=== PATIENT | female | born 1995 | race Caucasian/White ===

== ENCOUNTER 2019-11-27 06:05 | Emergency (ER) | payer OTHER, SELFPAY ==
[2019-11-27 06:06] VITALS: BP 134/91; PULSE 90; RESP 16; TEMP 36.7; O2SAT 97; BMI 35.7
--- NOTE | 2019-11-27 06:21 | ED.DCSUM_ITS ---
- ER Visit Summary Date of Service: 11/27/19 Chief Complaint: Back pain History of Present Illness: The patient is a 24 F [facility] She does not have a primary care physician. She reports at 9:00 last night she was picking up a futon mattress and had the abrupt onset of low back pain. She describes it as a sharp, throbbing pain that is 10 out of 10 with movement 6 out of 10 at rest. She is not taking anything for pain. There is no ration to her legs. No numbness or weakness in her legs. No problems with her bowels or bladder. No groin numbness. She denies any other trauma. No fall or MVA. She reports has had similar symptoms previously with spinal stenosis. Patient is a G1, P0 at 14 weeks of . She denies any vaginal bleeding. She denies any dysuria or frequency. She has no red flags. Physical Examination: Vitals: Stable. Afebrile. General: A&O x 3. NAD. Cardiovascular exam: Regular rate and rhythm, no murmur, rub or gallop. Respiratory exam: Clear to auscultation bilaterally. No wheezes or stridor. Abdominal exam: Soft, nontender, nondistended, normal bowel sounds. No peritoneal signs. Gravid uterus. Back: Diffuse moderate tenderness to palpation over the lumbar spine and the paraspinous musculature in the lumbar region. No point tenderness. Negative straight leg bilaterally. 5/5 DF, PF, EHL bilaterally. Normal sensation to light touch throughout. Extremity: No clubbing, cyanosis, or edema. Test Results: heart tones are 140. Emergency Department Course and Treatment: Patient was treated with Tylenol. She is resting comfortably. Treatment Plan: Patient will be discharged with symptomatic care. Instructed use Tylenol for pain. [facility] week if not improving. Return to the emergency department for any worsening symptoms. Disposition: To home in improved and stable condition. Impression: 1 1. Low back pain. 2. Second trimester . This note was generated with Transmensionation software. It may contain incorrect words, spelling, and punctuation that were not noted in review of the chart prior to signing ED Disposition - Plan for ED Patient: Disposition: Home or Assisted Living Instructions: ED LUMBAR SPRAIN/STRAIN Referrals: Lucie Silva MD [Primary Care Provider] - 1 Week if not improving
[2019-11-27] MEDS: Acetaminophen 500 MG Tablet 1000 MG PO (06:28)
[2019-11-27 06:51] VITALS: BP 134/91; PULSE 90; RESP 16; O2SAT 97
== END 2019-11-27 07:03 | disposition home or self-care (01) ==
LOC: ED 07:02
PROVIDERS: Emergency Provider Emergency Medicine; PCP Internal Medicine
DX: M54.5 Low back pain (principal); Z3A.14 14 weeks gestation of pregnancy
CPT/HCPCS: 99283

== ENCOUNTER 2020-05-29 07:15 | Inpatient (IN) | payer MEDICAID, SELFPAY ==
[2020-05-29] VITALS (41 sets, daily range): BP systolic 124–185; BP diastolic 58–91; PULSE 63–95; RESP 18; TEMP 35.8–37.3; O2SAT 82–100; BMI 38.9
--- NOTE | 2020-05-29 07:17 | PCM.HP.OB ---
History Date of Admission: 05/29/20 Final MANOJ: 05/29/20 Gestational age: 40 Weeks and 0 Days History of this : This is a 24 year-old, G [], P [], at weeks gestational age. 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 Number of Fetus(es): 1 NST - FHR Rate Baby A Baseline: 140 Variability:: Moderate Accelerations:: 15 x 15 Decelerations:: Variable Uterine Activity:: Irregular History Past Pregnancies: Past Pregnancies Delivery Date Name GA/ Weeks Outcome Route Wt Sex Labor Length Anesthesia Delivery Location Provider FOB Labs: See [facility] H&P Physical Exam Vitals: Vital Signs Temp Pulse BP 98.5 F 66 138/80 H 05/29/20 05:10 05/29/20 05:10 05/29/20 05:10 General: Alert, Oriented x3 Abdomen: Soft, Non Tender, Non-Distended, Gravid Neurological: Cranial nerves II-XII grossly intact POLYSOMNOGRAPH TECH: Normal external genitalia Estimated gestational size: Appropriate for gestational size Presentation: Cephalic Cervix Dilation (cm): 3 Station: -2 Effacement (%): 80 Assessment/Plan This is a 24 year-old, G1, P0, at 40 weeks gestational age. Admit to L&D Expectant management Pain - epidural GBS negative EFW - less than 4500g, patient with adequate pelvis H/o marijuana (used in ) & meth (last use more than 1 year ago) - check utox, plan for PP social work consult
[2020-05-29] MEDS: Lactated Ringers 500 ML 999 ML IV (07:40)
[2020-05-29] MEDS: Lactated Ringers 1,000 ML 50 ML IV (07:40)
[2020-05-29] MEDS: Ondansetron 4 MG/2 ML Vial IV (07:45)
[2020-05-29 07:58] LABS: Absolute Lymphocyte Count 1.45 X10^3/uL (0.83-4.51); Absolute Neutrophil Count 22.6 X10^3/uL (2.0-7.7); Basophil# 0.05 X10^3/uL; Basophil% 0.2 % (0-1); Eosinophil# 0.01 X10^3/uL; Hematocrit 39.6 % (37-47); Hemoglobin 13.3 g/dL (12.0-15.0); Lymphocyte # 1.45 X10^3/ul (4.0); Lymphocyte % 5.8 % (19-41); Mean Corp Hgb Conc 33.6 g/dL (32-36); Mean Corpuscular Hgb 31.1 pg (27.0-32.0); Mean Corpuscular Volume 92.7 fL (81-99); Mean Platelet Vol. 12.9 fl (6.2-12.0); Monocyte# 0.47 X10^3/uL; Monocyte% 1.9 % (0-10); NRBC Flagged by Analyzer 0 % (0-5); Neutrophil # 22.62 X10^3/uL (2.7-7.7); Neutrophil % 91.3 % (47-70); POSITIVE DIFFERENTIAL YES; Platelet Count 243 K/mm3 (150-450); RBC Distribution Width CV 12.5 % (11.6-14.6); RBC Distribution Width SD 42.5 fl (35.1-43.9); Red Blood Count 4.27 M/mm3 (4.2-5.4); White Blood Count 24.8 K/mm3 (4.4-11.0)
[2020-05-29 07:59] LABS: Differential Indicated SCAN CRITERIA MET
[2020-05-29 08:12] LABS: AST(SGOT) 22 U/L (15-37); Alanine Aminotransfer ALT/SGPT 18 U/L (13-56); Creatinine, Serum 0.67 mg/dL (0.55-1.02); EST Glomerular Filtration Rate 114 mL/min (>60); Est Glom Filt Rate - Afr Amer 138 mL/min (>60); Estimated Creatinine Clearance 121.21 ml/min; Uric Acid 5.1 mg/dL (2.6-6.0)
[2020-05-29] MEDS: fentaNYL-bupivacaine (epidural) 100 ML BAG EPIDURAL ×3 (08:34→17:46)
[2020-05-29 08:52] LABS: Partial Thromboplast Time 27.3 Seconds (24.1-36.2); Prothrombin Time (Protime)PT. 12.2 SECONDS (11.7-14.9)
--- NOTE | 2020-05-29 10:15 | PCM.PN.OB ---
Subjective: Breathing through contraction. Denies headache, visual changes, or RUQ pain. Requesting epidural for pain. Objective: FHR 140, moderate variability, accels. Had one late deceleration with positioning and recovered. Category 2 FHT TOCO: every 3-5 minutes, strong Cervix 3.5/90/-2 AROM small amount of clear fluid - Physical Exam Vitals/I&O's: Vital Signs Temp Pulse BP Pulse Ox 97.4 F L 68 142/68 H 98 05/29/20 12:05/29/20 12:09 05/29/20 12:05/29/20 12:09 Weight: 241 lb 6 oz Body Mass Index (BMI) 38.9 Intake and Output for Last 24 Hours 05/27/20 05/28/20 05/29/20 23:59 23:59 23:59 Intake Total 525.83 / 525.83 Output Total 150 / 150 Balance 375.83 / 375.83 Laboratory Results 05/29/20 07:40: WBC 24.8 H, RBC 4.27, Hgb 13.3, Hct 39.6, MCV 92.7, MCH 31.1, MCHC 33.6, RDW Std Deviation 42.5, RDW Coeff of Mar 12.5, Plt Count 243, MPV 12.9 H, Immature Gran % (Auto) 0.800, Neut % (Auto) 91.3 H, Lymph % (Auto) 5.8 L, [place] % (Auto) 1.9, Eos % (Auto) 0.0, Baso % (Auto) 0.2, Absolute Neuts (auto) 22.6 H, Absolute Lymphs (auto) 1.45, Nucleated RBC % 0, Differential Comment COMMENT 05/29/20 07:40: Blood Type O NEGATIVE, Antibody Screen NEGATIVE 05/29/20 07:40: PT 12.2, INR 1.0, APTT 27.3 05/29/20 07:40: Creatinine 0.67, Estim Creat Clear Calc 121.21, Est GFR (MDRD) Af Amer 138, Est GFR (MDRD) Non-Af 114, Uric Acid 5.1, AST 22, ALT 18 05/29/20 10:00: Urine Opiates Screen NEGATIVE, Urine Methadone Screen NEGATIVE, Ur Barbiturates Screen NEGATIVE, Ur Phencyclidine Scrn NEGATIVE, Ur Amphetamines Screen NEGATIVE, U Methamphetamin-MDMA NEGATIVE, U Benzodiazepines Scrn NEGATIVE, Urine Cocaine Screen NEGATIVE, U Cannabinoids Screen POSITIVE H, Ur Drug Screen Comment 05/29/20 10:00: U Random Total Protein 47.8 H, Urine Creatinine 243.00, Protein/Creatinin Ratio 197 Current Medications Acetaminophen (Tylenol) 325 - 650 mg PO Q4H PRN PRN PRN Reason: Pain Score 1-3/10 Al Hydroxide/Mg Hydroxide (Mylanta Ii) 15 - 30 ml PO Q4H PRN PRN PRN Reason: INDIGESTION Citric Acid/Sodium Citrate (Bicitra) 30 ml PO X1 PRN PRN Reason: Section Ephedrine Sulfate () 10 mg IV Q10M PRN PRN Reason: hypotension Ephedrine Sulfate () 10 mg IM Q30M PRN PRN Reason: hypotension Fentanyl Citrate (Sublimaze (100mcg Ampule)) 25 - 50 mcg IV Q2H PRN PRN PRN Reason: Pain Score 4-10/10 Fentanyl/Bupivacaine/Sodium Chlor () 0 ml EPIDURAL UD [facility]; Protocol Last Admin: 05/29/20 08:34 Dose: 100 ml Documented by: Lactated Ringer's () 500 mls @ 999 mls/hr IV .Q31M PRN PRN Reason: Epidural Last Infusion: 05/29/20 08:11 Dose: Infused Documented by: Lactated Ringer's () 500 mls @ 999 mls/hr IV .Q31M PRN PRN Reason: Corrective Measures Lactated Ringer's () 1,000 mls @ 50 mls/hr IV .Q20H [facility] Last Infusion: 05/29/20 08:11 Dose: 200 mls/hr Documented by: Naloxone HCl 4 mg/ Dextrose 504 mls @ 0 mls/hr IV .Q0M PRN; Protocol PRN Reason: To maintain Resp. rate >10 Oxytocin/Sodium Chloride () 30 units in 500 mls @ 2 mls/hr IV .Q250H [facility] Nalbuphine HCl (Nubain) 5 mg IV Q3H PRN PRN PRN Reason: ITCHING Naloxone HCl (Narcan) 0.02 mg IV Q1M PRN PRN Reason: RR< 10 AND PT UNRESPONSIVE Ondansetron HCl (Zofran) 4 mg IV Q4H PRN PRN PRN Reason: NAUSEA Last Admin: 05/29/20 07:45 Dose: 4 mg Documented by: Prochlorperazine Edisylate (Compazine Iv) 10 mg IV Q6H PRN PRN PRN Reason: NAUSEA Sodium Chloride () 10 - 40 ml IV X1 PRN PRN Reason: SALINE FLUSH Medical Necessity - Tobacco Use Smoking Status: Current every day smoker Assessment/Plan A:Active labor Category 2 FHT P: 1) AROM 2) Continuous EFM 3) Preeclampsia labs normal, BP stable. Awaiting urine P/C ratio. No signs of preeclampsia at this time 4) Comfortable with epidural. 5) updated on patient status 6) urine tox screen positive for marijuana, sr. social media & mobile manager consult PP
[2020-05-29 10:55] LABS: Protein, Urine (Random) 47.8 mg/dL (<11.9); Protein:Creat Ratio 197 mg/g CRE (0-200)
[2020-05-29 11:08] LABS: Amphetamine Urine VISTA NEGATIVE (<1000 ng/mL); Barbiturate Urine VISTA NEGATIVE (< 200 ng/mL); Benzodiazepine Urine VISTA NEGATIVE (< 200 ng/mL); Cocaine Urine VISTA NEGATIVE (< 300 ng/mL); Ecstacy Urine VISTA NEGATIVE (< 500 ng/mL); Methadone Urine VISTA NEGATIVE (< 300 ng/mL); PCP Urine VISTA NEGATIVE (< 25 ng/mL); THC Urine VISTA POSITIVE (< 50 ng/mL); Vista UDS pH Range 7
--- NOTE | 2020-05-29 12:10 | PN.OBGYN_ITS ---
Subjective: Resting on right side in bed, comfortable with epidural. Partner at bedside. Objective: BP stable Urine P/C ratio 197 normal FHR 120, moderate variability, accels Category 1 FHT TOCO: Irregular >5 minutes apart Cervix 4/90/-1 ANJANA - Physical Exam Vitals/I&O's: Vital Signs Temp Pulse BP Pulse Ox 97.4 F L 68 142/68 H 98 05/29/20 12:09 05/29/20 12:09 05/29/20 12:09 05/29/20 12:09 Weight: 241 lb 6 oz Body Mass Index (BMI) 38.9 Intake and Output for Last 24 Hours 05/27/20 05/28/20 05/29/20 23:59 23:59 23:59 Intake Total 1442.50 / 1442.50 Output Total 150 / 150 Balance 1292.50 / 1292.50 Laboratory Results 05/29/20 07:40: WBC 24.8 H, RBC 4.27, Hgb 13.3, Hct 39.6, MCV 92.7, MCH 31.1, MCHC 33.6, RDW Std Deviation 42.5, RDW Coeff of Mar 12.5, Plt Count 243, MPV 12.9 H, Immature Gran % (Auto) 0.800, Neut % (Auto) 91.3 H, Lymph % (Auto) 5.8 L , [place] % (Auto) 1.9, Eos % (Auto) 0.0, Baso % (Auto) 0.2, Absolute Neuts (auto) 22.6 H, Absolute Lymphs (auto) 1.45, Nucleated RBC % 0, Differential Comment COMMENT 05/29/20 07:40: Blood Type O NEGATIVE, Antibody Screen NEGATIVE 05/29/20 07:40: PT 12.2, INR 1.0, APTT 27.3 05/29/20 07:40: Creatinine 0.67, Estim Creat Clear Calc 121.21, Est GFR (MDRD) Af Amer 138, Est GFR (MDRD) Non-Af 114, Uric Acid 5.1, AST 22, ALT 18 05/29/20 10:00: Urine Opiates Screen NEGATIVE, Urine Methadone Screen NEGATIVE, Ur Barbiturates Screen NEGATIVE, Ur Phencyclidine Scrn NEGATIVE, Ur Amphetamines Screen NEGATIVE, U Methamphetamin-MDMA NEGATIVE, U Benzodiazepines Scrn NEGATIVE, Urine Cocaine Screen NEGATIVE, U Cannabinoids Screen POSITIVE H, Ur Drug Screen Comment 05/29/20 10:00: U Random Total Protein 47.8 H, Urine Creatinine 243.00, Protein/Creatinin Ratio 197 Current Medications Acetaminophen (Tylenol) 325 - 650 mg PO Q4H PRN PRN PRN Reason: Pain Score 1-3/10 Al Hydroxide/Mg Hydroxide (Mylanta Ii) 15 - 30 ml PO Q4H PRN PRN PRN Reason: INDIGESTION Citric Acid/Sodium Citrate (Bicitra) 30 ml PO X1 PRN PRN Reason: Section Ephedrine Sulfate () 10 mg IV Q10M PRN PRN Reason: hypotension Ephedrine Sulfate () 10 mg IM Q30M PRN PRN Reason: hypotension Fentanyl Citrate (Sublimaze (100mcg Ampule)) 25 - 50 mcg IV Q2H PRN PRN PRN Reason: Pain Score 4-10/10 Fentanyl/Bupivacaine/Sodium Chlor () 0 ml EPIDURAL UD [facility]; Protocol Last Admin: 05/29/20 12:46 Dose: 100 ml Documented by: Lactated Ringer's () 500 mls @ 999 mls/hr IV .Q31M PRN PRN Reason: Epidural Last Infusion: 05/29/20 08:11 Dose: Infused Documented by: Lactated Ringer's () 500 mls @ 999 mls/hr IV .Q31M PRN PRN Reason: Corrective Measures Lactated Ringer's () 1,000 mls @ 50 mls/hr IV .Q20H [facility] Last Admin: 05/29/20 12:46 Dose: 200 mls/hr Documented by: Naloxone HCl 4 mg/ Dextrose 504 mls @ 0 mls/hr IV .Q0M PRN; Protocol PRN Reason: To maintain Resp. rate >10 Oxytocin/Sodium Chloride () 30 units in 500 mls @ 2 mls/hr IV .Q250H [facility] Last Admin: 05/29/20 12:48 Dose: 2 mls/hr Documented by: Nalbuphine HCl (Nubain) 5 mg IV Q3H PRN PRN PRN Reason: ITCHING Naloxone HCl (Narcan) 0.02 mg IV Q1M PRN PRN Reason: RR< 10 AND PT UNRESPONSIVE Ondansetron HCl (Zofran) 4 mg IV Q4H PRN PRN PRN Reason: NAUSEA Last Admin: 05/29/20 07:45 Dose: 4 mg Documented by: Prochlorperazine Edisylate (Compazine Iv) 10 mg IV Q6H PRN PRN PRN Reason: NAUSEA Sodium Chloride () 10 - 40 ml IV X1 PRN PRN Reason: SALINE FLUSH Medical Necessity - Tobacco Use Smoking Status: Current every day smoker Assessment/Plan A:Active Labor Category 1 FHT P: 1) Contractions spaced out, if not increased in next 20 minutes will start pitocin augmentation. 2) Epidural effective 3) BP stable and preeclampsia labs normal. 4) update on patient status.
[2020-05-29] MEDS: Lactated Ringers 1,000 ML 200 ML IV ×2 (12:46→17:46)
[2020-05-29] MEDS: Oxytocin 30 units/NS 500 ml 30 UNITS/500 ML IV.SOLN IV (12:48)
[2020-05-29] MEDS: Oxytocin 30 units/NS 500 ml 30 UNITS/500 ML IV.SOLN 334 UNITS IV (18:32)
--- NOTE | 2020-05-29 19:10 | PCM.OPRPT ---
Problem List (1) Vaginal delivery Status: Acute (2) First degree perineal laceration Status: Acute (3) Periurethral laceration, delivered, current hospitalization Status: Acute Vaginal Delivery Maternal Presentation: Active Labor Amniotic Membrane Rupture Type: Artificial Amniotic Fluid Description: Clear - Clear fluid with rupture of membranes then Meconium near delivery Final MANOJ: 05/29/20 Gestational age: 40 Weeks and 0 Days Date of Procedure: 05/29/20 Pre-Operative Diagnosis: Active Labor Post-Operative Diagnosis: Surgery/ Procedure Performed: Spontaneous Vaginal Delivery Type of Anesthesia: Epidural Description of Procedure: Progressed to complete with urge to push. of viable male infant over first degree perineal laceration and periurethral laceration at 1830. APGARS 9, 9. head delivered with body forthcoming. Infant placed on maternal abdomen, spontaneous cry, mouth and nares suctioned for secretions. Pitocin started for active 3rd stage management. Placenta delivered with expression intact, 3 vessel cord, via pa. Perineum inspected and revealed first degree perineal laceration and periurethral laceration, repaired under epidural analgesia with 3.0vicryl. Well approximated and hemostasis achieved. Fundus firm, EBL 300ml. Vaginal sweep completed by me. Sponge and instrument count correct. Mom and baby stable. Planning to breastfeed. notified. Presentation: Vertex Placental Delivery Description: Spontaneous Placenta Disposition: [facility] Cord Vessel Description: 3 Vessels Cord Entanglement: None Estimated Blood Loss: 300 ml A gender: Male (1 minute): 9 (5 minute): 9 Episiotomy Description: None Laceration: Periurethral Extnsion/lac, Perineal Extension/lac, 1st degree Medications given after delivery: IV Pitocin Complications: None
[2020-05-30 03:55] VITALS: BP 145/76; PULSE 75; RESP 18; TEMP 36.7
[2020-05-30] MEDS: Ibuprofen 600 MG Tablet PO ×3 (04:07→21:08)
[2020-05-30 04:09] LABS: Hematocrit 33.6 % (37-47); Hemoglobin 11.5 g/dL (12.0-15.0); Mean Corp Hgb Conc 34.2 g/dL (32-36); Mean Corpuscular Hgb 31.7 pg (27.0-32.0); Mean Corpuscular Volume 92.6 fL (81-99); Platelet Count 209 K/mm3 (150-450); RBC Distribution Width CV 12.5 % (11.6-14.6); RBC Distribution Width SD 42.3 fl (35.1-43.9); Red Blood Count 3.63 M/mm3 (4.2-5.4)
--- NOTE | 2020-05-30 05:17 | NURSING ---
this RN to take over care for pt at this time.
--- NOTE | 2020-05-30 08:35 | PCM.PN.OB ---
Patient Problems: Active and Suspected Problems Vaginal delivery (Acute) First degree perineal laceration (Acute) Periurethral laceration, delivered, current hospitalization (Acute) Subjective: pt seen at bedside, doing well. pt reports good pain control. lochia mild. breast feeding w/o difficulty. - Physical Exam Vitals/I&O's: Vital Signs Temp Pulse Resp BP Pulse Ox 98.1 F 75 18 145/76 H 95 05/30/20 03:55 05/30/20 03:55 05/30/20 03:55 05/30/20 03:55 05/29/20 21:12 Oxygen Delivery Method Room Air Weight: 109.486 kg Body Mass Index (BMI) 38.9 Intake and Output for Last 24 Hours 05/28/20 05/29/20 05/30/20 23:59 23:59 23:59 Intake Total 3135.56 / 3135.56 Output Total 950 / 950 200 / 200 Balance 2185.56 / 2185.56 -200 / -200 General: Alert, Oriented x3 Abdomen: Soft, Non Tender, Non-Distended, - - fundus firm Extremities: No Calf Tenderness Laboratory Results 05/29/20 07:40: Blood Type O NEGATIVE, Antibody Screen NEGATIVE 05/29/20 07:40: PT 12.2, INR 1.0, APTT 27.3 05/29/20 10:00: Urine Opiates Screen NEGATIVE, Urine Methadone Screen NEGATIVE, Ur Barbiturates Screen NEGATIVE, Ur Phencyclidine Scrn NEGATIVE, Ur Amphetamines Screen NEGATIVE, U Methamphetamin-MDMA NEGATIVE, U Benzodiazepines Scrn NEGATIVE, Urine Cocaine Screen NEGATIVE, U Cannabinoids Screen POSITIVE H, Ur Drug Screen Comment 05/29/20 10:00: U Random Total Protein 47.8 H, Urine Creatinine 243.00, Protein/Creatinin Ratio 197 05/29/20 21:00: Screen NEGATIVE, Baby's Blood Type O POSITIVE, Baby's USMAN NEGATIVE 05/30/20 04:00: WBC 25.0 H, RBC 3.63 L, Hgb 11.5 L, Hct 33.6 L, MCV 92.6, MCH 31.7, MCHC 34.2, RDW Std Deviation 42.3, RDW Coeff of Mar 12.5, Plt Count 209, MPV 13.0 H Current Medications Acetaminophen (Tylenol) 1,000 mg PO Q8H PRN PRN PRN Reason: Pain Score 1-10/10 Bisacodyl (Dulcolax) 10 mg RECTAL UD PRN PRN Reason: If no BM Dibucaine (Dibucaine) 1 applic TOPICAL TID PRN PRN; Protocol PRN Reason: Discomfort Hydrocortisone (Hytone) 1 applic TOPICAL TID PRN PRN; Protocol PRN Reason: Discomfort Ibuprofen (Motrin) 600 mg PO Q6H PRN PRN PRN Reason: Pain Score 1-10/10 Last Admin: 05/30/20 04:07 Dose: 600 mg Documented by: Methylergonovine Maleate (Methergine) 0.2 mg IM X1 PRN PRN Reason: Excess bleeding/uterine atony Ondansetron HCl (Zofran) 4 mg IV Q4H PRN PRN PRN Reason: Nausea Senna/Docusate Sodium (Senokot-S, Karla-Colace) 1 - 2 tablet PO DAILY PRN PRN PRN Reason: Constipation Simethicone (Mylicon) 80 mg PO PCHS PRN PRN Reason: Indigestion/Stomach pain Sodium Chloride () 5 - 15 ml IV UD PRN PRN Reason: SALINE FLUSH Medical Necessity - Tobacco Use Smoking Status: Current every day smoker Assessment/Plan All Active Problems Vaginal delivery (Acute) First degree perineal laceration (Acute) Periurethral laceration, delivered, current hospitalization (Acute) PPD#1, doing well routine care pain mgmt ambulation
[2020-05-30 08:50] VITALS: BP 120/73; PULSE 72; RESP 16; TEMP 36.6; O2SAT 96
[2020-05-30 12:23] VITALS: BP 124/75; PULSE 100; RESP 17; TEMP 36.2; O2SAT 96
[2020-05-30] MEDS: Acetaminophen 500 MG Tablet 1000 MG PO (14:32)
[2020-05-30] MEDS: Senna/Docusate Sodium 1 Tablet PO (14:32)
[2020-05-30 16:00] VITALS: BP 124/70; PULSE 91; RESP 16; TEMP 36.7; O2SAT 95
--- NOTE | 2020-05-30 16:22 | CASEMGMT ---
Social Work Labor and Delivery Unit Consult received and noted for maternal history of marijuana use in ; remote history of methamphetamine use with last use reported in 2019. Chart has been reviewed. Noted that patient/mother of baby positive for marijuana upon admission. Baby's drug screens are pending. Plan to see patient/mother of baby on 05.31.2020 for assessment/consult and provision of resources and referrals as indicated. -MICHAEL Cruz, DRY CANS OPERATOR
[2020-05-30 21:01] VITALS: BP 133/74; PULSE 76; RESP 18; TEMP 36.6; O2SAT 97
[2020-05-31 02:47] VITALS: BP 130/86; PULSE 103; RESP 16; TEMP 36.6; O2SAT 99
[2020-05-31] MEDS: Ibuprofen 600 MG Tablet PO ×2 (06:03→13:44)
--- NOTE | 2020-05-31 08:06 | PCM.PN.BLA ---
Progress Note Attempted to round on patient but she is currently in SCN with . WBC on 05/30/20 was 25 Order placed for redraw today
[2020-05-31 09:29] VITALS: BP 134/89; TEMP 36.7; O2SAT 97
--- NOTE | 2020-05-31 09:32 | NURSING ---
CBC drawn by student nurse with assist by instructor ashwin troncoso
[2020-05-31 09:34] LABS: Hematocrit 33.5 % (37-47); Hemoglobin 11.2 g/dL (12.0-15.0); Mean Corp Hgb Conc 33.4 g/dL (32-36); Mean Corpuscular Hgb 31.3 pg (27.0-32.0); Mean Corpuscular Volume 93.6 fL (81-99); Mean Platelet Vol. 12.6 fl (6.2-12.0); Platelet Count 208 K/mm3 (150-450); RBC Distribution Width CV 12.6 % (11.6-14.6); RBC Distribution Width SD 43.3 fl (35.1-43.9); Red Blood Count 3.58 M/mm3 (4.2-5.4); White Blood Count 15.8 K/mm3 (4.4-11.0)
[2020-05-31 09:45] VITALS: BP 141/89; PULSE 67; RESP 18; TEMP 36.6; O2SAT 97
--- NOTE | 2020-05-31 12:05 | NURSING ---
supervised student while he lala CBC this AM
--- NOTE | 2020-05-31 13:30 | CASEMGMT ---
Social Work Labor and Delivery Unit Date of Referral:?05.29.2020 Time of Referral:?2144 Date of Intervention:?05.31.2020 Time of Intervention:?0 ? Patient address: [address] [place] [address] [place] [address] Patient phone: [phone]; [phone] Referred by:?Deirdre Sanchez CNM ? Reason for Referral:?THC in , mom and baby positive at delivery. History of meth usage, clean since . ?? ? History obtained from:?Mother of baby (MOB) Todd Marcos, father of baby (FOB) Ha White, and medical records ???Baby was admitted to the [facility].n Educated MOB that this bond underwriter is the social worker psychiatric for hospital of delivery labor and delivery unit, and for continuity of care of families admitted to the [facility] this bond underwriter also provides social work to the [facility] ? Household composition:?MOB and FOB reside with FOB's mother and FOB's 13 year old brother. ???Home situation is reported as safe and adequate. ? ? Patient's parent/guardian status:?DEN is a 24 year old single female, involved with PATTI White who is a 27 year old single male for the last 7 years. ?Privately, DEN denies any form of abuse in this relationship. ??Baby Ryan is the first child for both parents. ?? ? Medical History:?DEN is 1, P0 to 1 after delivering baby Ryan. ? care started at 8 weeks gestation and regular thereafter. ?Ryan delivered weighing 7 pounds 4 ounces. ?Apgars 9 and 9 at 1 and 5 minutes of life. ? ? Educational Status:??MOB with high school education. ?No reported issues with reading, writing, or learning. ? ? Financial Status:?DEN works part-time at [employer] and will return to work when able. ??FOJuan Diego works as a bagger at [employer]. ? Childcare/Caregiver(s):?MOB and FOB will be caregivers and plan to work opposite shifts when both are working.?? ? Transportation:?DEN has a drivers license but no car. ?Reliant on MOB's aunt, a cousin, and one of PATTI's brothers. ?? ? Programs/Agencies Involved:?Active with medical through [employer] and plans to apply for food assistance. ?Active with WIC. On [facility] waiting list. ?Has been working with [employer] for the housing program. ? ? Behavioral Health Issues:?Mental Health:??Maternal history of depression and anxiety. History of suicidal ideation with cutting 5 years ago during a brief split with the FOB. ??MOB reports used to be a cutter, when asked about the history of suicidality. ??MOB denies any self injury episodes during this and denies any thoughts/plans/intent for suicide. ??MOB is future oriented. ?No current medicine nor counseling. ??Substance Use: ??MOB with one episode of alcohol consumption this , in August before knowledge. ??MOB with use of marijuana during , which MOB reports helped with nausea and anxiety. ?MOB has reportedly been using marijuana since the age of 14 and reports to this bond underwriter cutting back in the last month to twice daily (am and pm) usage. ?MOB reports history of methamphetamine use for about 8 months with a sober date from this substance as 03.06.2019. ??Denies any other illicit drug use history including heroin, opiates, cocaine, pills. ?MOB does smoke tobacco and reports worked on reduction from 1 pack a day to 2-6 cigarettes a day during . Family History: ?PATTI is also reported to have substance use issues. Reports to use marijuana at this time. ??Reports sober from opiates for 5 years, alcohol for 4 years, and from meth since November 2019. ?Drugs Screens: Maternal drug screens positive on 10.23.2019 and at delivery on 05.29.2020. ??Baby's urine drug screen is positive and meconium is pending via the hospital of delivery. ?? ? Family Stressors:?Both parents with recent history of marijuana use, including maternal use during . ??Both parents at varying levels of sober time from other substances (other than marijuana). ??No active treatment or counseling support for wither. ???MOB voicing guilt feelings for baby being in the SCN and worried that somehow cause the baby's medical issues. ? ? Support Systems: ?MOB's mother is a good support to MOB. FOB is a support as well. ??PATTI's mother and 13 year old brother are supports to a certain extent (the brother still a minor and PATTI's mom has her own health issues so will not be an outlet for early childhood teacher help for the parents). ? ? Assessment Met with MOB alone and then joined by FOB. ?MOB okay talking about any subject, including substances in front of the FOB. ??MOB and FOB both cooperative with social work visit, non-defensive, and matter of fact when reporting social history. ??MOB emotional however, crying intermittently. ?Mood anxious, affect congruent to content. ?MOB and FOB both report to have needed supplies to care for baby including a car seat and safe sleep space. ??MOB reports to feel a positive connection to the baby and expressing guilt over the idea that MOB's actions during could have potentially caused issues for the baby now. ???Educated to mood and anxiety disorders, importance of letting others know if struggling and seeking out help and support. ?MOB expressed understanding and agreement. Educated both to shaken baby prevention and safe sleeping. ?Discussed need to call children services related to substance exposure. ??MOB expressed understanding and acceptance of this. ??Emotional support offered to MOB and FOB this date. MOB declines referrals to [facility] or to [facility] [employer]. ??Safe Plan of Care for infant: To abstain from further marijuana usage (or other drug usage for that matter), and reports belief will be able to do so as has not had any marijuana in 2 days (at time of social work assessment). ??Reports that if intent changes would no longer provided breast milk to the baby. ?Would not use any substance around the baby as well. ? ? Plan MOB will discharge as a patient today 05.31.2020 but remain in hostpial on hotel status, so as to continue caring for ezio who is in [facility]. ? [facility] resource packet provided as well as packet on mood and anxiety disorders. ??? Will follow up with handout on [facility]'s transportation assistance program. ? Will be making children services referral due to exposure and positive drug screen at delivery.?Response to Plan: MOB?does express understanding of proposed plan. ? MICHAEL Ruiz
[2020-05-31 13:46] VITALS: BP 138/99; PULSE 86; RESP 18; TEMP 36.8; O2SAT 97
[2020-05-31 13:47] VITALS: BP 117/71; PULSE 65; RESP 18; TEMP 36.9
--- NOTE | 2020-05-31 15:40 | CASEMGMT ---
Plan? Date of Intervention:?05.31.2020 Time of Intervention:?1445 and 1540 ? Referral Site:Inpatient?[facility] ? Reason for follow-up:Communication with agency:?[facility] ([facility]) at [phone] ? Summary of Family/Staff/Agency Contact: 1445: ?Referral to [facility] and spoke with Vanesa in the intake department. 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 ??Brief maternal and histories provided. ? ? 1539 Received a call from Patricia Zarate at [facility] who is assigned as the worker to referral this proposal lead writer called in. ?Updated and clarified referral. ??Patricia will make contact with the family today via phone. ?Plan to touch base with this proposal lead writer on Wednesday to check on status of family. ? ? 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 Plan:?MOB being discharged today. Social work to follow family via the SCN unit. ?? ? -MICHAEL Cruz, CIVIL ENGINEER'S AIDE
--- NOTE | 2020-05-31 21:09 | DCINST_ITS ---
Discharge Diet: No Restrictions Discharge Activity: Return to Normal Activity May resume sexual activity in: 6-8 weeks Additional Instructions: If you experience any of the following, contact your healthcare provider. * Bleeding that soaks a pad every hour for 2 hours * Fever 100.4 or higher * Unrelieved incision or abdominal pain * Swelling, redness, discharge or bleeding from your incision or episiotomy site * Your incision begins to separate * Problems urinating (including inability to urinate or burning while urinating). * Visual changes * Severe headache * Flu-like symptoms * Pain or redness in one of both of your breasts * Pain, warmth, tenderness or swelling in your legs, especially the calf area * Frequent nausea and vomiting * Symptoms of depression or anxiety If you experience any of the following, call 911 or go to the nearest Emergency Room. * Chest pain * Problems breathing * Seizure activity * Partial or complete paralysis of a body part, slurred speech, weakness or drooping of the face, or a sudden inability to walk or hold your balance Allergies/Adverse Reactions: Allergies No Known Allergies Allergy (Verified 05/29/20 05:24) Medications to take at Discharge Vits [Prenatabs FA ] 1 tab PO DAILY 05/29/20 When: 2 weeks virtual visit/ 6 weeks Primary Care Physician: Lucie Silva MD [Primary Care Provider] - Test Results: Test results from this visit will be discussed in further detail at your follow- up appointment, if applicable. Proposed Discharge Date: 05/31/20
--- NOTE | 2020-05-31 21:09 | PCM.DCVAG ---
Discharge Diet: No Restrictions Discharge Activity: Return to Normal Activity May resume sexual activity in: 6-8 weeks Additional Instructions: If you experience any of the following, contact your healthcare provider. Bleeding that soaks a pad every hour for 2 hours Fever 100.4 or higher Unrelieved incision or abdominal pain Swelling, redness, discharge or bleeding from your incision or episiotomy site Your incision begins to separate Problems urinating (including inability to urinate or burning while urinating). Visual changes Severe headache Flu-like symptoms Pain or redness in one of both of your breasts Pain, warmth, tenderness or swelling in your legs, especially the calf area Frequent nausea and vomiting Symptoms of depression or anxiety If you experience any of the following, call 911 or go to the nearest Emergency Room. Chest pain Problems breathing Seizure activity Partial or complete paralysis of a body part, slurred speech, weakness or drooping of the face, or a sudden inability to walk or hold your balance Allergies/Adverse Reactions: Allergies No Known Allergies Allergy (Verified 05/29/20 05:24) Medications to take at Discharge Vits [Prenatabs FA ] 1 tab PO DAILY 05/29/20 When: 2 weeks virtual visit/ 6 weeks Primary Care Physician: Lucie Silva MD [Primary Care Provider] - Test Results: Test results from this visit will be discussed in further detail at your follow-up appointment, if applicable. Proposed Discharge Date: 05/31/20
--- NOTE | 2020-05-31 21:10 | PCM.PN.OB ---
Subjective: Patient seen at bedside. Staying as hotel status due to infant being in SCN. Ambulating and voiding without difficulty. Lochia decreased. Pumping and feeding in SCN. Objective: WBC's decreased from 25 to 15.8 - Physical Exam Vitals/I&O's: Vital Signs Temp Pulse Resp BP Pulse Ox 98.4 F 65 18 117/71 97 05/31/20 13:47 05/31/20 13:47 05/31/20 13:47 05/31/20 13:47 05/31/20 13:46 Oxygen Delivery Method Room Air Weight: 241 lb 6 oz Body Mass Index (BMI) 38.9 Intake and Output for Last 24 Hours 05/29/20 05/30/20 05/31/20 23:59 23:59 23:59 Intake Total 3135.56 / 3135.56 Output Total 950 / 950 200 / 200 Balance 2185.56 / 2185.56 -200 / -200 General: Alert, Oriented x3 HEENT: Atraumatic Lungs: Normal air movement Cardiovascular: Regular rate Abdomen: Soft, Non Tender Neurological: Cranial nerves II-XII grossly intact Laboratory Results 05/31/20 09:25: WBC 15.8 H, RBC 3.58 L, Hgb 11.2 L, Hct 33.5 L, MCV 93.6, MCH 31.3, MCHC 33.4, RDW Std Deviation 43.3, RDW Coeff of Mar 12.6, Plt Count 208, MPV 12.6 H Medical Necessity - Tobacco Use Smoking Status: Current every day smoker Assessment/Plan All Active Problems Vaginal delivery (Acute) First degree perineal laceration (Acute) Periurethral laceration, delivered, current hospitalization (Acute) PPD #2 , First degree laceration Routine care support Discharge home
== END 2020-05-31 16:15 | disposition home or self-care (01) | DRG 560 ==
LOC: WPOUT 07:19 → WP 07:19
PROVIDERS: Advanced Practice Midwife; Admitting Provider Obstetrics & Gynecology; PCP Internal Medicine; Referring Provider Obstetrics & Gynecology; Visit Provider Obstetrics & Gynecology
DX: O99.334 Smoking (tobacco) complicating childbirth (principal); F17.200 Nicotine dependence, unspecified, uncomplicated; Z37.0 Single live birth; Z3A.40 40 weeks gestation of pregnancy; O70.0 First degree perineal laceration during delivery
CPT/HCPCS: 59025; 59050; 80307; 82565; 82570; 84156; 84450; 84460; 84550; 85025; 85027; 85461; 85610; 85730; 86850; 86900; 86901; 90384; 99218; J7120; G0378; J2405; J2790

== ENCOUNTER 2023-08-04 07:10 | Inpatient (IN) | payer MEDICAID, SELFPAY ==
[2023-08-04] VITALS (58 sets, daily range): BP systolic 105–150; BP diastolic 53–94; PULSE 57–107; TEMP 36.6–37.3; O2SAT 87–100; BMI 33.7
[2023-08-04] MEDS: Lactated Ringers 1,000 ML 50 ML IV (08:10)
[2023-08-04] MEDS: Oxytocin 15 Units/NS 250ml 15 UNITS/250 ML IV.SOLN 2 UNITS IV (08:15)
[2023-08-04 08:30] LABS: Absolute Lymphocyte Count 2.12 X10^3/uL (0.83-4.51); Absolute Neutrophil Count 10.8 X10^3/uL (2.0-7.7); Basophil# 0.06 X10^3/uL; Basophil% 0.4 % (0-1); Eosinophil# 0.11 X10^3/uL; Eosinophils% 0.8 % (0-5); Hematocrit 33.4 % (37-47); Lymphocyte # 2.12 X10^3/ul (0.83-4.51); Lymphocyte % 15.5 % (19-41); Mean Corp Hgb Conc 32.9 g/dL (32-36); Mean Corpuscular Volume 94.1 fL (81-99); Mean Platelet Vol. 12.3 fl (6.2-12.0); Monocyte# 0.55 X10^3/uL; NRBC Flagged by Analyzer 0 % (0-5); Neutrophil # 10.76 X10^3/uL (2.7-7.7); Neutrophil % 78.5 % (47-70); Platelet Count 172 K/mm3 (150-450); RBC Distribution Width CV 12.7 % (11.6-14.6); Red Blood Count 3.55 M/mm3 (4.2-5.4); White Blood Count 13.7 K/mm3 (4.4-11.0)
--- NOTE | 2023-08-04 08:41 | PCM.HP.OB ---
HPI - General General Date of Admission: 08/04/23 HPI Narrative DORINA PHELAN, is a 27 F at 39.1 weeks gestation who presents for scheduled induction of labor for uncontrolled GDM. complicated by tobacco use, obesity, and RH negative status. PFSH PFS Medical History Gestational diabetes depression Home Medications vits,calcium no.78-iron fumarate-folic acid 29 mg-1 mg tablet 1 tab PO DAILY Check with primary doctor 05/29/20 [History Last Taken 08/03/23 07:00 1 TAB] Allergy/AdvReac Type Severity Reaction Status Date / Time No Known Allergies Allergy Verified 08/04/23 07:35 Surgical History History of surgery Social History Smoking Status: Current every day smoker History Elective abortions Hx Para 1 Spontaneous abortions Hx # Term Pregnancies Ectopic pregnancies Hx # Pregnancies Multiple births # of living children ROS Eyes Eyes: Denies blurry vision, change in vision or spots in vision ENT HEENT: Denies dizziness or headache(s) Cardiovascular Cardiovascular: Denies abdominal pain, chest pain or dyspnea Respiratory/Chest Respiratory/Chest: Denies cough, dyspnea, shortness of breath at rest or shortness of breath with exertion Gastrointestinal Gastrointestinal: Denies abdominal pain, diarrhea or vomiting Genitourinary Genitourinary: Denies change in urinary stream, difficulty urinating or dysuria Musculoskeletal Musculoskeletal: Reports none Integumentary Integumentary: Denies rash Neurologic Neurologic: Denies dizziness, headache(s), memory loss or weakness Psychiatric Psychiatric: Reports none Vital Signs Vital Signs Vital Signs: 08/04/23 07:33 08/04/23 07:33 08/04/23 07:36 Temperature Temperature Source Temporal Pulse Rate 88 Blood Pressure 130/69 H BP Systolic 130 BP Diastolic 69 08/04/23 07:36 08/04/23 08:20 08/04/23 08:20 Temperature 98.5 F Temperature Source Pulse Rate 89 Blood Pressure 150/94 H BP Systolic 150 BP Diastolic 94 Weight Weight: 209 lb 7.026 oz Body Mass Index (BMI) 33.7 Physical Exam Const alert, oriented x3 and no apparent distress General Appearance: cooperative Orientation / Consciousness: awake Exam Limitations: no limitations HEENT normocephalic Head and Scalp: normal to inspection Eyes General Eye: normal appearance of both eyes Neck full ROM and no lymphadenopathy Lymph Lymphatic: no lymphadenopathy noted Chest inspection of chest normal Resp normal respiratory effort, normal air movement and clear to auscultation bilaterally Effort and Inspection: able to speak in complete sentences and symmetric chest movement Cardio regular rate and regular rhythm GI normal to inspection, nondistended, normoactive bowel sounds Manual OB Exam: presentation cephalic, dilated 4, effaced 80 and station 0 Amniotic Fluid: clear amniotic fluid Back/Spine normal ROM Extremity full ROM and no calf tenderness Skin no rashes or lesions noted General Skin Exam: no breakdown Neuro oriented x3 and CN's II-XII intact bilaterally Psych mental status grossly normal and thought process normal Labs Labs Labs: Blood Type O NEGATIVE Antibody Screen NEGATIVE Hct 33.4 % (37-47) L Hgb 11.0 g/dL (12.0-15.0) L Syphilis Total Ab Non-reactive Rhogam given: Yes GBS negative Assessment & Plan (1) 39 weeks gestation of : (2) GDM (gestational diabetes mellitus), class A1: (3) Encounter for induction of labor: (4) Tobacco abuse disorder: (5) Obesity affecting : (6) History of depression, currently : (7) Rh negative status during : PLAN: Plan Admit to labor and delivery Routine labs Start IV and run fluids per orders After reactive NST- start Pitocin IV at 2 mu/min and increase per orders Ambulate and position changes Epidural when indicated Dr. Solis notified of admission and plan of care
[2023-08-04 08:59] LABS: Syphilis Antibodies Non-reactive
[2023-08-04 09:07] LABS: Bedside Glucose 86 mg/dL (74-106)
[2023-08-04 09:41] LABS: Amphetamine Urine VISTA NEGATIVE (<1000 ng/mL); Barbiturate Urine VISTA NEGATIVE (< 200 ng/mL); Benzodiazepine Urine VISTA NEGATIVE (< 200 ng/mL); Cocaine Urine VISTA NEGATIVE (< 300 ng/mL); Ecstacy Urine VISTA NEGATIVE (< 500 ng/mL); Methadone Urine VISTA NEGATIVE (< 300 ng/mL); PCP Urine VISTA NEGATIVE (< 25 ng/mL); THC Urine VISTA POSITIVE (< 50 ng/mL); Vista UDS pH Range 5
[2023-08-04 10:10] LABS: Bedside Glucose 93 mg/dL (74-106)
[2023-08-04] MEDS: LACTATED RINGERS 500 ML 999 ML IV (12:08)
--- NOTE | 2023-08-04 12:57 | PCM.PN.CNM ---
Subjective Subjective Patient seen at bedside. Requesting epidural. Objective Data Objective Data Vital Signs: Vital Signs Temp Pulse BP Pulse Ox 97.8 F 63 128/69 H 98 08/04/23 12:03 08/04/23 12:53 08/04/23 12:03 08/04/23 12:53 Weight: 209 lb 7.026 oz Body Mass Index (BMI) 33.7 Intake & Output: Intake and Output for Last 24 Hours 08/02/23 08/03/23 08/04/23 23:59 23:59 23:59 Intake Total 209.33 / 209.33 Balance 209.33 / 209.33 Lab / Micro Data 08/04/23 08:10 Labs: Laboratory Results - last 24 hr 08/04/23 08:10: WBC 13.7 H, RBC 3.55 L, Hgb 11.0 L, Hct 33.4 L, MCV 94.1, MCH 31.0, MCHC 32.9, RDW Std Deviation 44.0 H, RDW Coeff of Mar 12.7, Plt Count 172, MPV 12.3 H, Immature Gran % (Auto) 0.800, Neut % (Auto) 78.5 H, Lymph % (Auto) 15.5 L, [place] % (Auto) 4.0, Eos % (Auto) 0.8, Baso % (Auto) 0.4, Absolute Neuts (auto) 10.8 H, Absolute Lymphs (auto) 2.12, Nucleated RBC % 0, Syphilis Total Ab Non-reactive, Blood Type O NEGATIVE, Antibody Screen NEGATIVE 08/04/23 08:45: Urine Opiates Screen NEGATIVE, Urine Methadone Screen NEGATIVE, Ur Barbiturates Screen NEGATIVE, Ur Phencyclidine Scrn NEGATIVE, Ur Amphetamines Screen NEGATIVE, MDMA (Ecstasy) Screen NEGATIVE, U Benzodiazepines Scrn NEGATIVE, Urine Cocaine Screen NEGATIVE, U Cannabinoids Screen POSITIVE H, Ur Drug Screen Comment 08/04/23 08:46: POC Glucose 86 08/04/23 09:49: POC Glucose 93 Assessment & Plan (1) 39 weeks gestation of : (2) GDM (gestational diabetes mellitus), class A1: (3) Encounter for induction of labor: (4) Tobacco abuse disorder: (5) Obesity affecting : (6) History of depression, currently : PLAN: Plan Cat. 1 tracing - TOCO every 2-3 minutes CE- 4/70/-2 AROM for small amount of clear fluid Continue Pitocin IV and increase per policy Epidural anesthesia Anticipate
[2023-08-04] MEDS: fentaNYL-bupivacaine (epidural) 100 ML BAG EPIDURAL ×2 (13:08→17:31)
[2023-08-04 14:09] LABS: Bedside Glucose 85 mg/dL (74-106)
[2023-08-04] MEDS: Lactated Ringers 1,000 ML 200 ML IV (14:36)
[2023-08-04 18:06] LABS: Bedside Glucose 75 mg/dL (74-106)
--- NOTE | 2023-08-04 19:26 | PCM.PN.CNM ---
Subjective Subjective Patient seen at bedside. Comfortable with epidural. Denies any pain. Objective Data Objective Data Vital Signs: Vital Signs Temp Pulse BP Pulse Ox 98.4 F 68 131/68 H 99 08/04/23 19:23 08/04/23 19:23 08/04/23 19:23 08/04/23 15:21 Weight: 209 lb 7.026 oz Body Mass Index (BMI) 33.7 Intake & Output: Intake and Output for Last 24 Hours 08/02/23 08/03/23 08/04/23 23:59 23:59 23:59 Intake Total 1151.36 / 1151.36 Output Total 550 / 550 Balance 601.36 / 601.36 Lab / Micro Data 08/04/23 08:10 Labs: Laboratory Results - last 24 hr 08/04/23 08:10: WBC 13.7 H, RBC 3.55 L, Hgb 11.0 L, Hct 33.4 L, MCV 94.1, MCH 31.0, MCHC 32.9, RDW Std Deviation 44.0 H, RDW Coeff of Mar 12.7, Plt Count 172, MPV 12.3 H, Immature Gran % (Auto) 0.800, Neut % (Auto) 78.5 H, Lymph % (Auto) 15.5 L, [place] % (Auto) 4.0, Eos % (Auto) 0.8, Baso % (Auto) 0.4, Absolute Neuts (auto) 10.8 H, Absolute Lymphs (auto) 2.12, Nucleated RBC % 0, Syphilis Total Ab Non-reactive, Blood Type O NEGATIVE, Antibody Screen NEGATIVE 08/04/23 08:45: Urine Opiates Screen NEGATIVE, Urine Methadone Screen NEGATIVE, Ur Barbiturates Screen NEGATIVE, Ur Phencyclidine Scrn NEGATIVE, Ur Amphetamines Screen NEGATIVE, MDMA (Ecstasy) Screen NEGATIVE, U Benzodiazepines Scrn NEGATIVE, Urine Cocaine Screen NEGATIVE, U Cannabinoids Screen POSITIVE H, Ur Drug Screen Comment 08/04/23 08:46: POC Glucose 86 08/04/23 09:49: POC Glucose 93 08/04/23 13:48: POC Glucose 85 08/04/23 17:34: POC Glucose 75 Assessment & Plan (1) 39 weeks gestation of : (2) GDM (gestational diabetes mellitus), class A1: (3) Encounter for induction of labor: (4) Tobacco abuse disorder: (5) Obesity affecting : (6) History of depression, currently : PLAN: Plan CE /-2 AROM forebag for clear fluid Pitocin at 18 mu/min Cat. 1 tracing Continue present plan of care Anticipate
[2023-08-04 20:39] LABS: Bedside Glucose 78 mg/dL (74-106)
[2023-08-04] MEDS: Oxytocin 15 Units/NS 250ml 15 UNITS/250 ML IV.SOLN 83 UNITS IV (21:19)
[2023-08-04] MEDS: Oxytocin 10 UNITS/ML Vial IM (21:22)
--- NOTE | 2023-08-04 21:37 | EX.PCM.OBRPT ---
Assessment & Plan (1) (spontaneous vaginal delivery): (2) Care and examination of lactating mother: (3) Rh negative status during : (4) History of depression, currently : (5) Tobacco abuse disorder: (6) GDM (gestational diabetes mellitus), class A1: Vaginal Delivery Maternal Presentation Maternal Presentation: Medically Indicated Induction Maternal Presentation: at 39.1 weeks gestation for scheduled induction of labor for uncontrolled GDM Type of Induction: Pitocin and Amniotomy Medical Reason for Induction: Maternal Medical Condition: list: (GDM) Operative Information Date of Procedure: 08/04/23 Pre-Operative Diagnosis: Term Gestation, GDM A1, Induction of labor Post-Operative Diagnosis: , live female infant Surgery / Procedure Performed: Spontaneous Vaginal Delivery Type of Anesthesia: Epidural Estimated Blood Loss: 250 ml Time of Delivery: 21:17 Findings Description of Procedure: Progressed to complete with urge to push. Provided bedside support while pushing. Epidural for pain management. With minimal maternal effort, head delivered with hand on cheek followed by anterior shoulder and remainder of body without traction. Vigorous female placed on maternal abdomen and attended to by nursing staff. Pitocin IV started for active management of the third stage.Three vessel cord clamped and cut by fob after delay. Cord blood obtained. placed skin to skin with patient. Placenta delivered spontaneously and intact. Perineum inspected and intact. Vagina intact. Fundus firm , midline at U. Hemostasis obtained. EBL 250 ml. Mother and baby stable, planning to breast feed. Dr. Solis notified of delivery. Christelle MURDOCK present for delivery. Presentation: Vertex and ANJANA Amniotic Membrane Rupture Type: Artificial Time of Membrane Rupture: 1241 Amniotic Fluid Description: Clear Placental Delivery Description: Spontaneous Placenta Disposition: [facility] Cord Vessel Description: 3 Vessels Cord Entanglement: None A Gender: Female (1 minute): 9 (5 minute): 9 Delayed Cord Clamping: Yes Post Vaginal Delivery Medications Given After Delivery: IV Pitocin Episiotomy Description: None Laceration: None Complication Complications: None
[2023-08-04 22:28] LABS: Bedside Glucose 81 mg/dL (74-106)
[2023-08-05 04:12] VITALS: BP 123/71; RESP 16; TEMP 36.6
[2023-08-05] MEDS: Acetaminophen 500 MG Tablet 1000 MG PO ×2 (06:02→20:39)
[2023-08-05] MEDS: Ibuprofen 600 MG Tablet PO ×2 (06:03→20:38)
[2023-08-05 06:49] LABS: Bedside Glucose 78 mg/dL (74-106)
--- NOTE | 2023-08-05 07:20 | PCM.PN.CNM ---
Subjective Subjective Patient seen at bedside. Sleeping sound. Ambulating and voiding without difficulty. Lochia decreasing. with minimal support. Desires discharge home tomorrow. Objective Data Objective Data Vital Signs: Vital Signs Temp Pulse Resp BP Pulse Ox 97.9 F 67 16 123/71 H 99 08/05/23 04:12 08/04/23 23:46 08/05/23 04:12 08/05/23 04:12 08/04/23 23:30 Weight: 209 lb 7.026 oz Body Mass Index (BMI) 33.7 Intake & Output: Intake and Output for Last 24 Hours 08/03/23 08/04/23 08/05/23 23:59 23:59 23:59 Intake Total 1525.83 / 1525.83 250 / 250 Output Total 900 / 900 500 / 500 Balance 625.83 / 625.83 -250 / -250 Lab / Micro Data 08/04/23 08:10 Labs: Laboratory Results - last 24 hr 08/04/23 08:10: WBC 13.7 H, RBC 3.55 L, Hgb 11.0 L, Hct 33.4 L, MCV 94.1, MCH 31.0, MCHC 32.9, RDW Std Deviation 44.0 H, RDW Coeff of Mar 12.7, Plt Count 172, MPV 12.3 H, Immature Gran % (Auto) 0.800, Neut % (Auto) 78.5 H, Lymph % (Auto) 15.5 L, [place] % (Auto) 4.0, Eos % (Auto) 0.8, Baso % (Auto) 0.4, Absolute Neuts (auto) 10.8 H, Absolute Lymphs (auto) 2.12, Nucleated RBC % 0, Syphilis Total Ab Non-reactive, Blood Type O NEGATIVE, Antibody Screen NEGATIVE 08/04/23 08:45: Urine Opiates Screen NEGATIVE, Urine Methadone Screen NEGATIVE, Ur Barbiturates Screen NEGATIVE, Ur Phencyclidine Scrn NEGATIVE, Ur Amphetamines Screen NEGATIVE, MDMA (Ecstasy) Screen NEGATIVE, U Benzodiazepines Scrn NEGATIVE, Urine Cocaine Screen NEGATIVE, U Cannabinoids Screen POSITIVE H, Ur Drug Screen Comment 08/04/23 08:46: POC Glucose 86 08/04/23 09:49: POC Glucose 93 08/04/23 13:48: POC Glucose 85 08/04/23 17:34: POC Glucose 75 08/04/23 20:19: POC Glucose 78 08/04/23 22:10: POC Glucose 81 08/04/23 23:30: Screen NEGATIVE, Baby's Blood Type O POSITIVE, Baby's USMAN NEGATIVE 08/05/23 06:30: POC Glucose 78 ROS Eyes Eyes: Denies blurry vision, change in vision or spots in vision ENT HEENT: Denies dizziness or headache(s) Cardiovascular Cardiovascular: Denies abdominal pain, chest pain or dyspnea Respiratory/Chest Respiratory/Chest: Denies cough, dyspnea, shortness of breath at rest or shortness of breath with exertion Gastrointestinal Gastrointestinal: Denies abdominal pain, diarrhea or vomiting Genitourinary Genitourinary: Denies change in urinary stream, difficulty urinating or dysuria Musculoskeletal Musculoskeletal: Reports none Integumentary Integumentary: Denies rash Neurologic Neurologic: Denies dizziness, headache(s), memory loss or weakness Physical Exam Const alert and no apparent distress General Appearance: cooperative and comfortable Exam Limitations: no limitations HEENT normocephalic Eyes General Eye: normal appearance of both eyes Neck full ROM General: normal visual inspection Chest Chest: symmetrical chest wall rise Resp normal respiratory effort and normal air movement Effort and Inspection: symmetric chest movement Auscultation: clear to auscultation bilaterally Cardio regular rate and regular rhythm GI normal to inspection, nondistended, normoactive bowel sounds Back/Spine normal ROM Extremity full ROM and no calf tenderness General Extremity: normal exam except as noted Skin no rashes or lesions noted Neuro CN's II-XII intact bilaterally Psych mental status grossly normal Assessment & Plan (1) Care and examination of lactating mother: (2) (spontaneous vaginal delivery): (3) Rh negative status during : (4) History of depression, currently : (5) GDM (gestational diabetes mellitus), class A1: PLAN: Plan PPD 1 Routine care Pain control Blood sugars within normal range support Anticipate discharge home tomorrow
[2023-08-05 09:24] VITALS: BP 124/77; PULSE 69; RESP 16; TEMP 36.4
[2023-08-05 11:43] VITALS: BP 122/73; PULSE 85; RESP 18; TEMP 36.3
--- NOTE | 2023-08-05 14:20 | CASEMGMT ---
Social Work Assessment Labor and Delivery Unit Patient Address:[address] [place] [address] Phone number: [phone] Date of Referral: 08/04/23, 08/05/23 Time of Referral:?[id number] Referred By: Ju Martino Date of Intervention: 08/05/23?? Time of Intervention:? 134 Reason for Referral:? THC in , substance abuse Sw completed chart review and acknowledges social work consult due to maternal substance use of THC during . Sw presented to bedside and introduced self to mother of baby (MOB- Todd) and father of baby (FOB- Ha). Sw explained reason for sw involvement and completed psychosocial assessment. Sw asked FOB to step out of room momentarily so that DEN could complete [place] Depression Scale due to her mental health history being positive for depression, anxiety and depression. FOB stepped out of room when asked politely and respectfully. History obtained from: medical records, MOB and FOB Household composition: Currently residing in the home is PATTI CRENSHAW, their three year old son, Ryan and now baby. Parents deny any housing concerns at this time. Patient's parent/guardian status:? ?Parents state that they met through a mutual friend on Facebook. They have been together for 10 years. While meeting with DEN privately she denies any concerns regarding domestic violence or intimate partner violence with PATTI. Medical History: ?DEN is 27 year old female who is 2, para 1- now 2 following labor and delivery of baby. DEN received routine care during with [facility]. DEN delivered baby on 08/04/23 via vaginal delivery at 39 weeks gestation. Baby girl, named Sondra Saini, was born weighing 6lb 12oz and her apgars were 9 and 9 at one and five minutes of life respectfully. Baby will be followed by Dr. Zarate for pediatrics. DEN is and states that it is going well, she has a breast pump ordered for home going. Educational Status:? MOB graduated from high school, and PATTI completed the 10th grade, but then went on to obtain his GED. Parents deny concerns with reading, learning or comprehension. Financial Status: Both parents are gainfully employed outside of the home. PATTI recently got a new job at [employer], he starts next Wednesday. DEN works at [employer] and is able to take 12 weeks off of work for maternity leave. Infant Supplies:?? MOB states that they have obtained all necessary baby supplies, including: car seat, safe sleep space, clothes, diapers, wipes and a breast pump. Childcare/Caregiver(s):? DEN states that she is the primary caregiver to baby, along with FOB when he is not at work. MOB states that her mother is watching their three year old son while they are at the hospital. MOB states that her son is on the wait list for a spot at daycare. Transportation:?? MOB states that she has her drivers license and a working vehicle, FOB depends on MOB to drive as he does not have a license. Programs/Agencies Involved: ???DEN is connected to Medicaid insurance and WIC. MOB states that she is going to apply for food stamps and see if they are eligible. MOB states that they are also connected to [employer] ever since their son was born. Their worker's name is Jazzy. Jazzy will continue to meet with the family every week now that baby has been born. DEN admits that this linkage has been a great resource for her. Children Services/Legal Issues:???Parents report that referral to Children Services was made following the of their first son due to maternal use of THC during . Parents state that a worker came to their house and made sure that they had everything they needed for baby, and then closed the case. Cuco informed parents that another referral to Children Services is warranted at this time due to MOB testing positive for THC during and at time of delivery. Parents expressed understanding. Behavioral Health Issues: ??Mental Health History:?FOJuan Diego denies mental health diagnoses. DEN states that she has been diagnosed with anxiety, depression, and did experience depression following the delivery of her first baby. DEN states that she also has a history of cutting, but that has not been an issue for a long time. DEN states that her symptoms of depression included anger and feeling overwhelmed. DEN stated that she is nervous she will experience those same symptoms this time due to feeling over stimulated a lot at home with her son, who MOB reports has a lot of energy. DEN completed an [place] Depression Scale, her score was a 12. Cuco explained importance of getting connected to a mental health professional during her period due to her [place] score already being high. MOB expressed understanding. List of agencies and additional community resources were provided to MOB. ?? Substance Use History:?MOB admits to daily THC use during . FOB also disclosed daily THC use. MOB states that they never smoke in the home, and always when their 3 year old son is asleep. MOB states that her use is to help with nausea during and anxiety. ? Family History:?Parents deny family history of significant mental health and addiction. ? Drug Screens: ??MOB urine screen on admission was positive for THC. Meconiumn still pending. Family/Social Stressors:?MOB and FOB deny current stressors at this time. Support Systems: MOB states that her mom and her sisters are her biggest supports. MOB states that if she were to struggle with depression or anxiety during this time she would reach out to her sisters and they would listen to her and offer support. Depression/Shaken Baby/Safe Sleeping:? Sw provided education and literature on signs and symptoms of baby blues and depression/ anxiety to be on the lookout for. Parents expressed understanding. Sw encouraged MOB and FOB to talk to each other prior to discharge about things that FOB can do to help and support MOB during this time as it can be challenging for dad to know what to do. MOB admitted that she does not open up easily to talk about her feelings and what she is struggling with. She expects FOB to just know what to do. Sw educated parents on shaken baby prevention and ABCs of safe sleep. Parents expressed understanding. ASSESSMENT:? MOB and baby admitted following labor and delivery. MOB talkative and open during psychosocial assessment. FOB also talkative and engaged in conversation. Parents both admitted to daily THC use prior to and during . Aware of [place] act and that referral to Children Services is warranted. Parents have obtained everything they need for baby and have supports in place. MOB observed to provide loving hands on care to baby during assessment. MOB nursing baby and stated it is going well. Safe Plan of Care for related to substance use:? MOB stated that at this time she still plans on using marijuana, but outside of the household and never around either of the children. - Referral to Children Services warranted at this time. PLAN:? SW make referral to [facility], and will continue to follow throughout current admission to provide support and literature on community resources that patient/ family are eligible for. ?No other services requested or indicated. Frannie Bull, MANUFACTURER AGENT, STAFF REGISTERED NURSE
--- NOTE | 2023-08-05 14:47 | CASEMGMT ---
Labor and Delivery Social Work Sw called [facility] and made referral to hotline worker, Mercedes. Sw informed Mercedes that referral is due to maternal and father admitted to daily THC use prior to and during duration of . Sw stated that MOB disclosed that she does have intentions of continuing to use marijuana. - Sw stated that other concerns are maternal mental health history (anxiety, depression, PPD), and limited supports. - Mercedes took referral and stated that sw will be receiving mandated research phlebotomist letter in the mail. Frannie Bull, [employer] CERTIFIED NETWORK ASSOCIATE, [employer] HYDROXIDE OPERATOR
[2023-08-05 17:00] VITALS: BP 110/62; PULSE 74; RESP 16; TEMP 36.4
[2023-08-05 20:28] VITALS: BP 116/63; PULSE 67; RESP 16; TEMP 36.8
[2023-08-05] MEDS: SimETHICONE 80 MG Chewable Tablet PO (22:57)
[2023-08-05] MEDS: Senna/Docusate Sodium 1 Tablet PO (22:57)
[2023-08-06 00:10] VITALS: BP 109/68; PULSE 63; RESP 18; TEMP 36.6
[2023-08-06 04:31] VITALS: BP 111/59; PULSE 58; RESP 16; TEMP 36.6
[2023-08-06 08:33] VITALS: BP 129/77; PULSE 58; RESP 16; TEMP 36.4
--- NOTE | 2023-08-06 08:38 | PCM.PROGNOTE ---
Subjective Subjective patient seen at bedside, doing well. Patient reports good pain control. lochia mild. bresat feeding Objective Data Objective Data Vital Signs: Vital Signs Temp Pulse Resp BP Pulse Ox O2 Del Method 97.5 F L 58 L 16 129/77 H 99 Room Air 08/06/23 08:33 08/06/23 08:33 08/06/23 08:33 08/06/23 08:33 08/04/23 23:30 08/06/23 04:31 Oxygen Delivery Method Room Air Weight: 95 kg Body Mass Index (BMI) 33.7 Intake & Output: Intake and Output for Last 24 Hours 08/04/23 08/05/23 08/06/23 23:59 23:59 23:59 Intake Total 1525.83 / 1525.83 250 / 250 Output Total 900 / 900 500 / 500 Balance 625.83 / 625.83 -250 / -250 Lab / Micro Data 08/04/23 08:10 Physical Exam Const alert and oriented x3 General Appearance: cooperative HEENT normocephalic Neck General: normal visual inspection GI soft to palpation and non-distended GI Narrative: Fundus firm Extremity normal to inspection and no calf tenderness Skin no rashes or lesions noted Neuro oriented x3 and CN's II-XII intact bilaterally Psych mental status grossly normal Assessment & Plan Assessment/Plan (1) (spontaneous vaginal delivery): (2) Care and examination of lactating mother: (3) Rh negative status during : (4) History of depression, currently : (5) Obesity affecting : (6) GDM (gestational diabetes mellitus), class A1: PLAN: Plan PPD# 1 , Doing well Routine care pain mgmt ambulation dc home time spent face to face with patient on day of discharge was <30min
--- NOTE | 2023-08-06 08:39 | DCINST_ITS ---
Discharge Instructions Diet Discharge Diet: No restrictions Activity May resume sexual activity in: 6-8 weeks Dressing / Incision Call your doctor if you observe: Fever of 101 or Higher, Inability to urinate, Using more than 1 pad per hour and Uncontrolled pain Follow Up Care Please Follow Up With: Marcie Rivera MD When: 1-2 weeks post and again at 6 weeks post . [phone] Test Results: Test results from this visit will be discussed in further detail at your follow- up appointment, if applicable. Discharge Plan Admission Admit Date/Time: 08/04/23 07:10 Attending Provider: Ju Martino Primary Care Provider: Rm Gay Discharge Orders/Prescriptions Prescriptions: New acetaminophen 500 mg Tablet 1,000 mg PO Q6H PRN PRN (Reason: Pain 1-10 Or Fever) Qty: 0 0RF ibuprofen 600 mg Tablet 600 mg PO Q6H PRN PRN (Reason: Pain Score 1-10) Qty: 0 0RF Continued vit,[id number] 1 TABLET tablet 1 tab PO DAILY Referrals / Follow Up: Rm Gay MD [Primary Care Provider] - Disposition Disposition (needs filled in before D/C Order can be placed): Home, Self Care
== END 2023-08-06 11:05 | disposition home or self-care (01) | DRG 560 ==
PROVIDERS: Obstetrics & Gynecology; Admitting Provider Advanced Practice Midwife; PCP Internal Medicine; Referring Provider Advanced Practice Midwife; Visit Provider Advanced Practice Midwife
DX: O24.420 Gestational diabetes mellitus in childbirth, diet controlled (principal); Z37.0 Single live birth; O99.324 Drug use complicating childbirth; F12.10 Cannabis abuse, uncomplicated; O99.214 Obesity complicating childbirth; O26.893 Other specified pregnancy related conditions, third trimester; Z67.41 Type O blood, Rh negative; Z3A.39 39 weeks gestation of pregnancy; Z87.59 Personal history of other complications of pregnancy, childbirth and the puerperium
CPT/HCPCS: 59025; 59050; 80307; 82962; 85025; 85461; 86780; 86850; 86900; 86901; 99221; J7120; G0378; J2790